=== PATIENT | female | born 1955 | race Two or more races ===

== ENCOUNTER 2016-09-23 15:04 | Emergency (ER) | payer SELFPAY ==
[~2016-09-23] VITALS: Ht 167.6 cm; Wt 68.0 kg
[2016-09-23 15:26] VITALS: BP 111/41
[2016-09-23 15:41] LABS: BASOPHILS % (AUTO) 0.4 % (0.0-2.0); EOSINOPHILS % (AUTO) 1.4 % (0.0-3.0); LYMPHOCYTES % (AUTO) 7.9 % (20.0-45.0); MEAN CORPUSCULAR HEMOGLOBIN 29.6 PG (27.0-31.0); MEAN CORPUSCULAR HGB CONC 32.6 G/DL (32.0-36.0); MEAN CORPUSCULAR VOLUME 91 FL (80-99); MEAN PLATELET VOLUME 6.4 FL (6.5-10.1); MONOCYTES % (AUTO) 7.7 % (1.0-10.0); NEUTROPHILS % (AUTO) 82.6 % (45.0-75.0); PLATELET COUNT 279 K/UL (150-450); RED BLOOD COUNT 4.04 M/UL (4.20-5.40); RED CELL DISTRIBUTION WIDTH 12.3 % (11.6-14.8); WHITE BLOOD COUNT 15.3 K/UL (4.8-10.8)
[2016-09-23 15:43] LABS: TROPONIN I < 0.30 ng/mL (<=0.30)
[2016-09-23 15:44] LABS: ALANINE AMINOTRANSFERASE 25 U/L (3-33); ALBUMIN/GLOBULIN RATIO 1.1 (1.0-2.7); ANION GAP 17 (5-15); ASPARTATE AMINO TRANSFERASE 45 U/L (5-40); CALCIUM 8.4 mg/dL (8.6-10.2); CARBON DIOXIDE 23 mEQ/L (20-30); CHLORIDE 98 mEQ/L (98-107); CREATININE 0.8 mg/dL (0.5-0.9); GLOMERULAR FILTRATION RATE > 60 mL/min (>60); HEMOLYSIS 29; POTASSIUM 3.9 mEQ/L (3.4-4.9); SODIUM 138 mEQ/L (135-145); TOTAL PROTEIN 6.6 g/dL (6.6-8.7)
[2016-09-23 15:54] LABS: CKMB < 1.5 ng/mL (< 3.8)
[2016-09-23 16:08] LABS: BILIRUBIN,DIRECT 0.2 mg/dL (0.1-0.3)
[2016-09-23] MEDS ORDERED: Albuterol ud Inhalation HHN ONE (16:30)
[2016-09-23 16:34] LABS: APPEARANCE,URINE CLEAR; KETONES,URINE 1+ (NEGATIVE); LEUKOCYTE ESTERASE ,URINE 3+ (NEGATIVE); NITRITE,URINE NEGATIVE (NEGATIVE); PH,URINE 5 (4.5-8.0); PROTEIN,URINE 2+ (NEGATIVE); UROBILINOGEN,URINE 1 MG/DL (0.0-1.0)
[2016-09-23 16:49] LABS: BACTERIA,URINE MODERATE /HPF; SQUAMOUS EPITHELIAL CELL,UR FEW /LPF (NONE/OCC)
[2016-09-23] MEDS ORDERED: ALBUTEROL SULF8.5 GM INH (16:50)
[2016-09-23] MEDS ORDERED: LEVAQUIN750 MG ORAL (16:50)
[2016-09-23 18:16] VITALS: BP 120/55
--- NOTE | 2016-09-24 08:15 | Diagnostic Imaging Report ---
Indications: Chest pain Technique: Portable AP chest Findings: Comparison: None Ports ration limits evaluation. Linear densities in right midlung, both bases. Crowding of bronchovascular markings in both bases. Cardiac silhouette partially obscured. Pulmonary vasculature within normal limits. No obvious pleural abnormality. IMPRESSION: Bilateral subsegmental atelectasis No other evidence of acute cardiopulmonary disease, limited as described. Basal abnormalities may be missed. Upright PA and lateral chest radiographs with better inspiratory effort and optimal technique recommended for more complete evaluation.
--- NOTE | 2016-09-25 02:26 | Emergency Room Report ---
History of Present Illness General Chief Complaint: Syncope Source: Patient Present Illness HPI Patient presents with by paramedics for syncopal episode Patient was at a restaurant when she began feeling lightheaded As she stood up to go outside to get fresh air And patient felt increasingly lightheaded And had a questionable syncope versus near syncopal episode After the patient stood up for the second time She had a nausea and vomiting episode And felt significantly better after that Patient has recently flown in from [place] is usually on anti-hypertensive medications However skip her dose today as she was feeling generally weak Denies any chest pain she has had increased cough over the past several days Questionable low-grade fever denies any chest pain or pleurisy otherwise Denies any calf swelling Allergies: Coded Allergies: ASPIRIN (Verified Allergy, Unknown, 09/23/16) Uncoded Allergies: NSAIDS (Allergy, Unknown, 09/23/16) Patient History Past Medical History: see triage record Pertinent Family History: none Reviewed Nursing Documentation: PMH: Agreed, PSxH: Agreed Nursing Documentation-PMH Past Medical History: No History, Except For Hx Hypertension: Yes Review of Systems All Other Systems: negative except mentioned in HPI Physical Exam Vital Signs Date Time Temp Pulse Resp B/P Pulse Ox O2 Delivery O2 Flow Rate FiO2 09/23/16 14:58 97.9 91 18 103/48 97 Room Air Sp02 EP Interpretation: reviewed, normal General Appearance: well appearing, no apparent distress Head: normocephalic, atraumatic Eyes: bilateral eye EOMI, bilateral eye PERRL ENT: hearing grossly normal, normal pharynx, TMs + canals normal, uvula midline Neck: full range of motion, supple, no meningismus, no bony tend Respiratory: lungs clear, normal breath sounds, no rhonchi, no respiratory distress, no retraction, no accessory muscle use Cardiovascular #1: normal peripheral pulses, regular rate, rhythm, no edema, no gallop, no JVD, no murmur Gastrointestinal: normal bowel sounds, non tender, soft, no mass, no organomegaly, non-distended, no guarding, no hernia, no pulsatile mass, no rebound Genitourinary: no CVA tenderness Musculoskeletal: normal inspection Neurologic: oriented x3, responsive, at risk paraprofessional III-XII nml as tested, motor strength/ tone normal, sensory intact Psychiatric: mood/affect normal Skin: normal color, no rash, warm/dry, palpation normal Lymphatic: normal inspection, no adenopathy Medical Decision Making Diagnostic Impression: Primary Impression: pneumonia Additional Impression: syncope ER Course Patient is a fairly complex patient with multiple differential to consideration including but not limited to cardiac cardiopulmonary and vascular emergencies Patient's white blood for count is elevated X-rays also show a concerning findings with possible right-sided infiltrate Patient was provided with IV antibiotics and breathing treatments Intermittently the patient had a low oxygen visualized by myself And the family continues to reiterate that she has had low oxygen previously and this is normal for her I recommended admission given the findings However the patient does not want to be admitted to the hospital She is aware that leaving at this time can lead to worsening symptoms and possible , also resulting from undiagnosed pathology thus far Patient was given a prescription for continued coverage at home and will return with any changes Labs Test 09/23/16 15:19 09/23/16 16:06 White Blood Count 15.3 K/UL (4.8-10.8) Red Blood Count 4.04 M/UL (4.20-5.40) Hemoglobin 12.0 G/DL (12.0-16.0) Hematocrit 36.7 % (37.0-47.0) Mean Corpuscular Volume 91 FL (80-99) Mean Corpuscular Hemoglobin 29.6 PG (27.0-31.0) Mean Corpuscular Hemoglobin Concent 32.6 G/DL (32.0-36.0) Red Cell Distribution Width 12.3 % (11.6-14.8) Platelet Count 279 K/UL (150-450) Mean Platelet Volume 6.4 FL (6.5-10.1) Neutrophils (%) (Auto) 82.6 % (45.0-75.0) Lymphocytes (%) (Auto) 7.9 % (20.0-45.0) Monocytes (%) (Auto) 7.7 % (1.0-10.0) Eosinophils (%) (Auto) 1.4 % (0.0-3.0) Basophils (%) (Auto) 0.4 % (0.0-2.0) Sodium Level 138 mEQ/L (135-145) Potassium Level 3.9 mEQ/L (3.4-4.9) Chloride Level 98 mEQ/L (98-107) Carbon Dioxide Level 23 mEQ/L (20-30) Anion Gap 17 (5-15) Blood Urea Nitrogen 11 mg/dL (7-23) Creatinine 0.8 mg/dL (0.5-0.9) Estimat Glomerular Filtration Rate > 60 mL/min (>60) Glucose Level 131 mg/dL (74-106) Calcium Level 8.4 mg/dL (8.6-10.2) Total Bilirubin 1.1 mg/dL (0.0-1.2) Direct Bilirubin 0.2 mg/dL (0.1-0.3) Aspartate Amino Transf (AST/SGOT) 45 U/L (5-40) Alanine Aminotransferase (ALT/SGPT) 25 U/L (3-33) Alkaline Phosphatase 89 U/L (35-104) Total Creatine Kinase 100 U/L (26-140) Creatine Kinase MB < 1.5 ng/mL (< 3.8) Creatine Kinase MB Relative Index Troponin I < 0.30 ng/mL (<=0.30) Total Protein 6.6 g/dL (6.6-8.7) Albumin 3.5 g/dL (3.5-5.2) Globulin 3.1 g/dL Albumin/Globulin Ratio 1.1 (1.0-2.7) Urine Color Yellow Urine Appearance Clear Urine pH 5 (4.5-8.0) Urine Specific [place] 1.020 (1.005-1.035) Urine Protein 2+ (NEGATIVE) Urine Glucose (UA) Negative (NEGATIVE) Urine Ketones 1+ (NEGATIVE) Urine Occult Blood 1+ (NEGATIVE) Urine Nitrite Negative (NEGATIVE) Urine Bilirubin Negative (NEGATIVE) Urine Urobilinogen 1 MG/DL (0.0-1.0) Urine Leukocyte Esterase 3+ (NEGATIVE) Urine RBC 2-4 /HPF (0 - 2) Urine WBC 5-10 /HPF (0 - 2) Urine Squamous Epithelial Cells Few /LPF (NONE/OCC) Urine Bacteria Moderate /HPF (NONE) Rhythm Strip Diag. Results EP Interpretation: yes Rate: 67 Rhythm: NSR, no PVC's, no ectopy Chest X-Ray Diagnostic Results EP Interpretation: Yes Findings: no effusion, no pneumothorax, other - Right mid and lower lobe atelectasis, possible infiltrate, heart size normal, no acute bony abnormalities Number of Views: 1 Last Vital Signs Date Time Temp Pulse Resp B/P Pulse Ox O2 Delivery O2 Flow Rate FiO2 09/23/16 18:16 98.0 70 16 120/55 100 Room Air Status: improved Disposition: AGAINST MEDICAL ADVICE Condition: Improved Scripts Albuterol Sulfate* (ALBUTEROL SULFATE MDI*) 8.5 Gm Hfa.aer.ad 2 PUFF INH Q4H Y for cough/wheezing, #1 EA 0 Refills Prov: DAILY HOWE D.O. 09/23/16 Levofloxacin* (LEVAQUIN*) 750 Mg Tablet 750 MG ORAL DAILY for 7 Days, TAB Prov: DAILY HOWE D.O. 09/23/16 Referrals: NOT CHOSEN IPA/,REFERRING (PCP) Patient Instructions: Syncope, Community-Acquired Pneumonia, Adult, Easy-to- Read Additional Instructions: Please note that you have been recommended to be admitted to the hospital Given the blood pressure abnormalities, given the laboratory abnormalities and your syncopal episode require admission to the hospital. Your aware that leaving at this time coming to worsening symptoms and possible and or leaving AGAINST MEDICAL ADVICE, DAILY HOWE D.O. Sep 25, 2016 02:26
--- NOTE | 2016-09-25 23:33 | Cardiology Report ---
APPROVED REPORT EKG Measurement Heart [id number] Normal sinus rhythm Nonspecific T wave abnormality Abnormal ECG
== END 2016-09-23 18:18 | disposition left against medical advice (07) ==
LOC: EDBD 15:04 → EMR 16:03
DX: R55 Syncope and collapse (principal); J18.9 Pneumonia, unspecified organism; I10 Essential (primary) hypertension; Z88.6 Allergy status to analgesic agent
CPT/HCPCS: 36415; 71010; 80053; 81003; 82248; 82550; 82553; 84484; 85025; 87086; 93005; 94640; 94664; 96374; 96375; 99284; J1956; J7040